=== PATIENT | male | born 1975 | race Caucasian/White ===

== ENCOUNTER 2019-02-13 16:02 | Emergency (ER) | payer MEDICARE ==
[2019-02-13 16:08] VITALS: Wt 151.9 kg
[2019-02-13] MEDS ORDERED: TORADOL10 MG PO (17:25)
[2019-02-13 18:36] VITALS: BP 116/86
== END 2019-02-13 18:37 | disposition home or self-care (01) ==
LOC: D.ER 16:02
DX: S93.402A Sprain of unspecified ligament of left ankle, initial encounter (principal); X58.XXXA Exposure to other specified factors, initial encounter; Y93.89 Activity, other specified; Y92.89 Other specified places as the place of occurrence of the external cause

== ENCOUNTER 2019-03-30 10:12 | Emergency (ER) | payer MEDICARE ==
[~2019-03-30] VITALS: Ht 172.7 cm; Wt 127.3 kg
[~2019-03-30 10:12] MED LIST: TORADOL10 MG PO
[2019-03-30 10:18] VITALS: Ht 172.7 cm; Wt 127.3 kg
== END 2019-03-30 11:47 | disposition home or self-care (01) ==
LOC: D.ER 10:12
DX: B07.9 Viral wart, unspecified (principal)